=== PATIENT | male | born 1995 | race Two or more races ===

== ENCOUNTER 2024-12-21 07:01 | Emergency (ER) | payer MEDICAID, OTHER ==
[~2024-12-21] VITALS: Ht 180.3 cm; Wt 123.1 kg
[2024-12-21 07:50] LABS: Hematocrit 44.7 % (41.0-53.0); Hemoglobin 15.1 g/dL (13.5-17.5); Mean Corpuscular Hemoglobin 30.0 pg (28.0-32.0); Mean Corpuscular Volume 88.7 fL (80.0-100.0); Nucleated Red Blood Cells % 0.1 %
--- NOTE | 2024-12-21 07:52 | ED.PDOC ---
Musculoskeletal HPI Comments A 29-year-old male who is right-hand dominant with no past medical history presents to the ED with a chief complaint of atrauamtic non radiating right shoulder pain x4 days. Patient seen has been experiencing 6/10, right shoulder pain for the past four days, described as stabbing sensation with intermittent tingling. Pain began spontaneous noticed symptoms worsened this morning and came to the ED. No other symptoms or modifying factors present at this time. Denies fevers chills night sweats nausea vomiting redness around the shoulder Denies previous surgeries to the shoulder or significant injury Numbness/tingling down the arm Denies changes, shortness of breath Chief Complaint: Upper Extremity Time Seen by MD: 07:35 Reviewed Notes: Nurses Notes, Medications, Allergies Allergies: Coded Allergies: NO KNOWN ALLERGIES (Unverified , 12/21/24) Home Meds Active Scripts Naproxen (Naproxen) 500 Mg Tab, 500 MG PO BIDWM for 14 Days, #28 TAB 0 Refills Prov:KEIRA JANG NP 12/21/24 Information Source: Patient Mode of Arrival: Ambulatory Location: Right Extremity Location: Arm, Shoulder Timing: Days Prehospital treatment: None Severity: Moderate Able to Move Extremity: Yes Bear Weight: Limited Pain: Moderate Hand Dominance: Right Mechanism: Spontaneous Circumstances: Spontaneous Onset of Symptoms: Spontaneous Symptoms: Pain DVT Risk Factors: NONE Last Tetanus: Unknown Associated signs and symptoms: Shoulder pain Past Medical History PAST MEDICAL HISTORY: Denies Surgical History: Denies all surgeries Family History Family History: Reviewed,noncontributory to illness, No family hx of Cancer, No family hx of DM, No family hx of Heart yared, No family hx of HTN, No family hx ofKidney yared, No family hx of Liver yared, No family hx of Lung yared, No family hx of Stroke Social History Smoker: Non-Smoker Alcohol: Occasionally Drugs: Marijuana Lives In: Home All Other Systems: Reviewed and Negative (as per HPI) Physical Exam General Appearance: Normal HEENT: Normal ENT Inspection, Pharynx Normal, TMs Normal Neck: Full Range of Motion, Non-Tender, Normal, Normal Inspection Respiratory: Chest Non-Tender, Lungs Clear, No Accessory Muscle Use, No Respiratory Distress, Normal Breath Sounds Cardiovascular: No Murmur, No Gallop, Regular Rate/Rhythm Breast Exam: Deferred Gastrointestinal: No Organomegaly, Non Tender, No Pulsatile Mass, Normal Bowel Sounds, Soft Genitalia: Deferred Pelvic: Deferred Rectal: Deferred Extremities: No calf tenderness, Normal capillary refill, Normal inspection, Normal range of motion, Non-tender, No pedal edema Musculoskeletal : Location: Right Extremity Location: Shoulder ( Shoulder: No gross abnormality on inspection. No shoulder drop visible. No clavicular tenderness on palpation. Palpation tenderness to coracoid process and acromion process. No scapular, supraspinatus, infraspinatus tenderness to touch. Limited flexion passive movement due to pain. Pain with abduction. ) Apperance: Normal Neurologic: Alert, technical lead II-XII nml as Tested, No Motor Deficits, Normal Affect, Normal Mood, No Sensory Deficits Cerebellar Function: Normal Reflexes: Normal Skin: Dry, Normal Color, Warm Lymphatic: No Adenopathy Was a procedure done? Was a procedure done?: No Differential Diagnosis EXT Differential Diagnosis: Fracture, Sprain, Dislocation X-Ray, Labs, Meds, VS Vital Signs Date Time Temp Pulse Resp B/P (MAP) Pulse Ox O2 Delivery O2 Flow Rate FiO2 12/21/24 09:26 98.1 94 18 156/106 (123) 95 98.1 12/21/24 08:19 90 16 98 Room Air 12/21/24 08:19 98.7 90 16 159/103 (121) 98 98.7 12/21/24 08:16 18 97 Room Air* 0 21 12/21/24 07:31 107 12/21/24 07:27 97.8 110 20 163/109 (127) 98 97.8 Lab Test 12/21/24 08:33 12/21/24 07:33 Range/Units Urine Color Light-yellow Yellow Urine Clarity Clear Clear Urine pH 6.0 5.0-9.0 Urine Specific [place] 1.020 1.001-1.035 Urine Protein 1+ H Negative Urine Ketones Trace Negative Urine Blood 1+ H Negative /uL Urine Nitrite Negative Negative Urine Bilirubin Negative Negative Urine Urobilinogen Normal Negative mg/dL Urine Leukocyte Esterase Trace Negative /uL Urine RBC 1 0 - 3 /hpf Urine Microscopic WBC 7 H 0-3 /HPF Urine Squamous Epithelial Cells Few <5 /hpf Urine Bacteria Few H None Seen /hpf Urine Mucus Few None Seen Urine Glucose Normal Normal mg/dL Urine Opiates Screen Neg NEGATIVE Urine Fentanyl Screen Neg NEGATIVE Urine Barbiturates Screen Neg NEGATIVE Urine Phencyclidine Screen Neg NEGATIVE Urine Amphetamines Screen Neg NEGATIVE Urine Benzodiazepines Screen Neg NEGATIVE Urine Cocaine Screen Neg NEGATIVE Urine Cannabinoids Screen Pos NEGATIVE White Blood Count 12.0 H 4.4-10.8 10^3/uL Red Blood Count 5.04 4.5-5.90 10^6/uL Hemoglobin 15.1 13.5-17.5 g/dL Hematocrit 44.7 41.0-53.0 % Mean Corpuscular Volume 88.7 80.0-100.0 fL Mean Corpuscular Hemoglobin 30.0 28.0-32.0 pg Mean Corpuscular Hemoglobin Concent 33.9 32.0-36.0 g/dL Red Cell Distribution Width 13.5 11.8-14.3 % Platelet Count 304 140-450 10^3/uL Mean Platelet Volume 6.7 L 6.9-10.8 fL Neutrophils (%) (Auto) 67.1 37.0-80.0 % Lymphocytes (%) (Auto) 22.6 10.0-50.0 % Monocytes (%) (Auto) 8.7 0.0-12.0 % Eosinophils (%) (Auto) 1.3 0.0-7.0 % Basophils (%) (Auto) 0.3 0.0-2.0 % Neutrophils # (Auto) 8.0 1.6-8.6 10 ^3/uL Lymphocytes # (Auto) 2.7 0.4-5.4 10 ^3/uL Monocytes # (Auto) 1.0 0-1.3 10 ^3/uL Eosinophils # (Auto) 0.2 0-0.8 10 ^3/uL Basophils # (Auto) 0 0-0.2 10 ^3/uL Nucleated Red Blood Cells 0.1 % Sodium Level 139 136-145 mmol/L Potassium Level 3.8 3.5-5.1 mmol/L Chloride Level 102 98-107 mmol/L Carbon Dioxide Level 27 20-31 mmol/L Anion Gap 10 5-15 Blood Urea Nitrogen 9 9-23 mg/dL Creatinine 0.84 0.700-1.30 mg/dL Glomerular Filtration Rate Calc 120 >90 mL/min BUN/Creatinine Ratio 10.7 10.0-20.0 Serum Glucose 116 H 74-106 mg/dL Calcium Level 10.4 8.7-10.4 mg/dL Troponin I High Sensitivity 3 L </=54 ng/L [place] [id number] Ph: [phone] DIAGNOSTIC IMAGING Diagnostic Imaging Report : [id number] Signed PATIENT: YECENIA HERRERA ACCT: [id number] UNIT: [id number] : 1995 LOC: ER ROOM / BED: / AGE / SEX: 29 / M ADM STATUS: REG ER SERVICE 1 ORDERING PHYSICIAN: KEIRA JANG NP PROCEDURE(s): CXR2 - CHEST TWO VIEWS ROUTINE REASON: r/o pna, chf, cardiomegaly, pneumothorax ORDER NUMBER(s): [id number], ACCESSION NUMBER(s): [id number] CHEST TWO VIEWS ROUTINE, HISTORY: r/o pna, chf, cardiomegaly, pneumothorax COMPARISON: None None TECHNICAL DATA: 2 view of the chest was obtained. FINDINGS: Lines and tubes: None Cardiomediastinal silhouette: normal Pulmonary vasculature: normal Lung expansion: normal Lung airspace: normal Lung interstitium: normal Pleura: normal Pneumothorax: no Bones: Unremarkable Other: no IMPRESSION: No acute intrathoracic abnormality. ATED BY: KLEBER ABLERTO MD DICTATED DATE/TIME: 12/21/24804 SIGNED BY: KLEBER ALBERTO MD SIGNED DATE/TIME: 12/21/24804 CC: [place] [id number] Ph: [phone] DIAGNOSTIC IMAGING Diagnostic Imaging Report : [id number] Signed PATIENT: YECENIA HERRERA ACCT: [id number] UNIT: [id number] : 1995 LOC: ER ROOM / BED: / AGE / SEX: 29 / M ADM STATUS: REG ER SERVICE 1 ORDERING PHYSICIAN: KEIRA JANG NP PROCEDURE(s): RSHD2 - R SHOULDER 2+ VIEW XRAY REASON: pain ORDER NUMBER(s): [id number], ACCESSION NUMBER(s): [id number] EXAM: XY R SHOULDER 2+ VIEW XRAY HISTORY: Pain COMPARISON: None TECHNIQUE: 3 views of the right shoulder were performed. FINDINGS: No acute fracture or dislocation are identified about the right shoulder. 12 mm focus of mineralization overlying the humeral head. IMPRESSION: 1. No fracture or dislocation. 2. Calcific tendinitis in the right shoulder. ATED BY: LEANDRA PEREIRA MD DICTATED DATE/TIME: 12/21/24799 SIGNED BY: LEANDRA PEREIRA MD SIGNED DATE/TIME: 12/21/24799 CC: X-Ray, Labs, Meds, VS Comment A 29-year-old male who is right-hand dominant with no past medical history presents to the ED with a chief complaint of right shoulder pain x4 days. Patient arrives alert and oriented, ABC's intact, afebrile, vital signs stable, saturating well in room air labs were ordered. CBC was ordered to exclude anemia, blood loss, or infection. BMP was ordered to exclude electrolyte abnormalities, renal failure, dehydration, hyperglycemia Troponin was ordered to rule out myocardial infarction, or congestive heart failure. Urinalysis was ordered to rule out UTI or hematuria. Drug screen was ordered. Diagnostic imaging ordered by me and results interpreted by radiology : Chest XY: IMPRESSION: No acute intrathoracic abnormality. shoulder XY: IMPRESSION: 1. No fracture or dislocation. 2. Calcific tendinitis in the right shoulder. Suspect muscle sprain/strain of the Low likelihood of bony or more serious injury, VSS, pt stable Take IBU 600 w/ food as needed for pain Recommended heat therapy Reviewed RICE management Avoid heavy lifting or strenuous activity Recommended range of motion exercises and limit heavy activity for 1 week If no improvement advised patient to return to the emergency department for follow-up. Patient is stable for discharge at this time. External notes reviewed. Test results and diagnostic imaging interpreted. All diagnostic findings, discharge care, education and instructions provided Follow-up with PCP in 2 to 3 days Patient verbalized understanding and agreed to treatment plan Vital signs stable, afebrile, no acute distress noted Patient ambulatory with strong steady gait Advised to return precautions for any new or worsening symptoms, return to ER immediately for re-evaluation Additional MDM Review of External, Non-ED records: External records reviewed. Discussion with independent historian (EMS, family) history obtained from the patient/parents (if applicable) at bedside Chronic conditions affecting care: None Social determinants of health affecting care: smokes marihuana, drinks ETOH occasionally Patient is aware that the purpose of this visit was for an acute medical emergency requiring emergent stabilization. Chronic conditions, including malignancies have not been ruled out. Patient is instructed to follow up with PCP as directed and discharge instructions for continued care and workup. If unable to arrange follow-up, patient is to return to the emergency department for reassessment. Patient (parent or legal guardian if applicable) was given verbal and written discharge instructions and acknowledges understanding. Time of 1ST Reevaluation: 08:05 Reevaluation 1ST: Improved Patient Education/Counseling: Diagnosis, Treatment Family Education/Counseling: No Family Present Departure 1 Departure Time of Disposition: 09:18 Impression: Primary Impression: Shoulder tendinitis Qualified Codes: M77.8 - Other enthesopathies, not elsewhere classified Disposition: HOME / SELF CARE / HOMELESS Condition: Fair e-Prescriptions Naproxen (Naproxen) 500 Mg Tab 500 MG PO BIDWM for 14 Days, #28 TAB 0 Refills Prov: KEIRA JANG NP 12/21/24 Discharged With: Self Critical Care Note Critical Care Time?: No Stability Stability form required: No Heart Score Heart Score: Heart Score Response (Comments) Value History N/A 0 EKG N/A 0 Age N/A 0 Risk Factors N/A 0 Troponin N/A 0 Total 0 I personally scribed for KEIRA JANG NP (ART) on 12/21/24 at 07:51. Electronically submitted by Carmen Carroll ([email or web address]). I personally scribed for KEIRA JANG NP ([email or web address]) on 12/21/24 at 07:54. Electronically submitted by Carmen Carroll ([email or web address]). I personally scribed for KEIRA JANG ENGINEERING PRODUCTION LIAISON ([email or web address]) on 12/21/24 at 08:14. El ectronically submitted by Carmen Carroll ([email or web address]). I personally scribed for KEIRA JANG [employer]INEERING [employer]ODUCTION LIAISON ([email or web address]) on 12/21/24 at 09:20. Electro nically submitted by Carmen Carroll ([email or web address]). KEIRA JANG [employer]ODUCTION LIAISON Dec 21, 2024 07:51
[2024-12-21 07:58] LABS: Chloride 102 mmol/L (98-107); Potassium 3.8 mmol/L (3.5-5.1); Sodium 139 mmol/L (136-145)
[2024-12-21 07:59] LABS: Anion Gap 10 (5-15); Carbon Dioxide 27 mmol/L (20-31)
[2024-12-21 08:00] LABS: Calcium 10.4 mg/dL (8.7-10.4)
--- NOTE | 2024-12-21 08:03 | DVH ---
EXAM: XY R SHOULDER 2+ VIEW XRAY HISTORY: Pain COMPARISON: None TECHNIQUE: 3 views of the right shoulder were performed. FINDINGS: No acute fracture or dislocation are identified about the right shoulder. 12 mm focus of mineralizat ion overlying the humeral head. IMPRESSION: 1. No fracture or dislocation. 2. Calcific tendinitis in the right shoulder.
[2024-12-21 08:04] LABS: BUN/Creatinine Ratio 10.7 (10.0-20.0)
[2024-12-21 08:05] LABS: Blood Urea Nitrogen 9 mg/dL (9-23); Glucose 116 mg/dL (74-106)
--- NOTE | 2024-12-21 08:08 | DVH ---
XY CHEST TWO VIEWS ROUTINE, HISTORY: r/o pna, chf, cardiomegaly, pneumothorax COMPARISON: None None TECHNICAL DATA: 2 view of the chest was obtained. FINDINGS: Lines and tubes: None Cardiomediastinal silhouette: normal Pulmonary vasculature: normal Lung expansion: normal Lung airspace: normal Lung interstitium: normal Pleura: normal Pneumothorax: no Bones: Unremarkable Other: no IMPRESSION: No acute intrathoracic abnormality.
[2024-12-21 08:16] VITALS: RESP 18; O2SAT 97
[2024-12-21 08:47] LABS: Urine Protein, UAD 1+ (Negative)
[2024-12-21 09:04] LABS: Amphetamine Screen, Urine Neg (NEGATIVE); Barbiturate Scree,Urine Neg (NEGATIVE); Benzodiazephine Screen, Urine Neg (NEGATIVE); Cannabinoid Screen, Urine Pos (NEGATIVE); Cocaine Screen, Urine Neg (NEGATIVE); Opiate Scree,Urine Neg (NEGATIVE); Phencyclidine Screen, Urine Neg (NEGATIVE)
[2024-12-21] MEDS ORDERED: NAPR-746 PO (09:19)
[2024-12-21 09:26] VITALS: BP 156/106; PULSE 94; RESP 18; TEMP 98.1; O2SAT 95
--- NOTE | 2024-12-21 12:50 | ECG ---
[facility] Test Date: 2024-12-21 Test Time: 07:31:32 Pat Name: YECENIA HERRERA Department: [facility] ED Patient ID: [id number] Room: Gender: M Grinder Lap: gp : 1995 Requested By: KEIRA JANG Order Number: [id number] Reading MD: Cruzito Lizarraga Measurements Intervals [place] Rate: 107 P: 44 SD: 128 QRS: 8 QRSD: 92 T: 6 QT: 322 QTc: 430 Interpretive Statements Sinus tachycardia Low voltage, precordial leads Baseline wander in lead(s) II,aVR Electronically Signed On 12-23-2024 17:49:38 PDT by Cruzito Lizarraga Please click the below link to view image of tracing.
== END 2024-12-21 09:28 | disposition home or self-care (01) ==
LOC: ER 07:09
DX: M75.81 Other shoulder lesions, right shoulder (principal); M25.511 Pain in right shoulder; F17.200 Nicotine dependence, unspecified, uncomplicated; Z79.899 Other long term (current) drug therapy
CPT/HCPCS: 36415; 71046; 73030; 80048; 80307; 81001; 84484; 85025; 93005